=== PATIENT | male | born 1970 | race American Indian/Alaskan Native ===

== ENCOUNTER 2023-04-30 17:10 | Emergency (ER) | payer OTHER, SELFPAY ==
[2023-04-30 17:15] VITALS: BP 157/84; PULSE 92; RESP 18; TEMP 36.3; O2SAT 99; BMI 35.2
--- NOTE | 2023-04-30 19:06 | ED_ITS ---
HPI - General Adult General Time Seen by Provider: 19:06 Date Seen: 04/30/23 Chief complaint: Extremity Pain/Injury, Upper Stated complaint: L shoulder and chest numbness, tingling Time Seen by Provider: 04/30/23 19:06 Source: patient and RN notes reviewed Mode of arrival: ambulatory Limitations: no limitations History of Present Illness HPI narrative: Patient is a 53-year-old male coming in with about 4 months history of numbness tingling that goes from his 3rd and 4th fingers in will feel it up into his left anterior chest wall. He calls it a numb pain. When asked views having pain he said there was no pain but then later he did state it was a numb pain that will range from about 2-4. If he attempts to raise his left arm over his head it will completely fall asleep. He is notably sitting with his right arm over his head and preferentially puts it there. He denies any trauma at the onset of this. His left arm will be more numb and tingly when he wakes up. His 2nd finger on the left hand has lost all sensitivity after an accident. Again there is no trauma. He is worried about heart disease as it is strong in his family. He states he is on lisinopril to control his blood pressure, tries to have a physical every year. He admits he had a lipid panel as well as a cardiac stress test per report last urine is physical. We did review that for months of constant symptoms would not be a heart attack. His symptoms tonight are from something different but we did discuss that does not rule out the possibility of underlying heart disease for him, he needs to continue to be monitored to his primary care provider I would highly recommend ongoing efforts for healthy lifestyle. He is not a smoker. Denies neck pain. Related Data Allergies Allergy/AdvReac Type Severity Reaction Status Date / Time No Known Drug Allergies Allergy Verified 04/30/23 17:18 Review of Systems Status of ROS: Reports: 6 or more systems reviewed and unremarkable except as noted in History and below Exam Const: Vital Signs, click to edit/add: Vital Signs - 24 hr 04/30/23 17:15 Temperature 97.3 F L Pulse Rate [Right Pulse Oximeter] 92 Respiratory Rate 18 Blood Pressure [Ri ght Upper Arm] 157/84 H Pulse Oximetry 99 Oxygen Delivery Me thod Room Air 53-year-old male is alert interactive no apparent distress. Pupils equal round, sclera clear, face atraumatic, normal speech. Neck is supple, no cervical adenopathy no thyromegaly masses or nodules. Lungs are clear with good air entry, CV regular rate and rhythm no murmur. No palpable chest wall mass, does feel some left lateral anterior chest wall different sensation but again no mass. He has normal sensation throughout his fingers of the left hand minus his right index as this 1 has no sensation. Cap refill is normal. He has negative Tinel's and Phalen's at the wrist positive Tinel's at his left elbow. Strength and sensation is normal and symmetrical. Do note that he has vitiligo with loss of pigmentation at the tips of his fingers. Documenting provider has reviewed patient's vital signs: yes Course Course Hospital Course: Reviewed with patient that this is presenting like a peripheral neuropathy which is isolated in his left arm. He has no symptoms elsewhere. He has a positive Tinel's at the left elbow making ulnar neuropathy a possibility. Like carpal tunnel, can have retrograde symptoms with other neuropathies as well. He needs outpatient follow-up with his primary care provider, referral to have an EMG of this arm to help better delineate the peripheral neuropathy. Laboratory evalua tion can be considered in can be reviewed with his primary care provider. As we discussed before, his current symptoms are not indicative of acute coronary syndrome but he does have risk factors and needs ongoing monitoring for that. Highly encourage him on lifestyle that is heart healthy. No further labs need to be done tonight as this is a peripheral neuropathy and is not clinically emergent at this time. Vital Signs Vital signs: Initial Vital Signs Temperature 97.3 F L 04/30/23 17:15 Temperature Source Temporal Artery Scan 04/30/23 17:15 Pulse Rate 92 04/30/23 17:15 Pulse Rhythm Regular 04/30/23 17:15 Pulse Strength 3+ Normal 04/30/23 17:15 Respiratory Rate 18 04/30/23 17:15 Blood Pressure 157/84 H 04/30/23 17:15 Blood Pressure Mean 108 H 04/30/23 17:15 Blood Pressure Position Sitting 04/30/23 17:15 Pulse Oximetry 99 04/30/23 17:15 Oxygen Delivery Method Room Air 04/30/23 17:15 Vital Signs Temperature 97.3 F L 04/30/23 17:15 Pulse Rate 92 04/30/23 17:15 Respiratory Rate 18 04/30/23 17:15 Blood Pressure 157/84 H 04/30/23 17:15 Pulse Oximetry 99 04/30/23 17:15 Oxygen Delivery Method Room Air 04/30/23 17:15 Temperature 97.3 F L 04/30/23 17:15 Pulse Rate 92 04/30/23 17:15 Respiratory Rate 18 04/30/23 17:15 Blood Pressure 157/84 H 04/30/23 17:15 Pulse Oximetry 99 04/30/23 17:15 Oxygen Delivery Method Room Air 04/30/23 17:15 Medical Decision Making ECG Data Attestation: I personally reviewed and interpreted this ECG as follows: (Sinus rhythm, 100 beats per minute, no acute ischemia noted.) Prior ECG tracings: not available for review Critical Care Time Critical Care Time Critical Care Time: No Discharge Plan Discharge Clinical Impression: Numbness and tingling in left arm Patient Disposition: Home, Self-Care Condition: Stable Instructions: Paresthesia (ED) Additional Instructions: Need to schedule follow-up with your primary care provider as soon as you are able to. Recommend having an EMG ordered to further delineate the numbness and tingling in this left arm. It is possible that this could be an ulnar neuropathy. Continue to work with your primary care provider for risk factor reduction for cardiac disease given your reported family history. Heart healthy lifestyle includes low-fat low-sodium diet, exercise and maintaining healthy weight. Talk to her primary care provider about this further. Continue to have your blood pressure and your cholesterol monitored. Activity Level: Activity as Tolerated Follow Up/Referrals: Provider,Not a Local [Primary Care Provider] - Stand Alone Forms: [employer] Info Instructions
== END 2023-04-30 19:47 | disposition home or self-care (01) ==
LOC: ED 19:43
PROVIDERS: Emergency Provider Family Medicine; PCP Physician Assistant
DX: R20.0 Anesthesia of skin (principal)
CPT/HCPCS: 99283

== ENCOUNTER 2024-06-16 15:52 | Emergency (ER) | payer OTHER, SELFPAY ==
[2024-06-16 15:55] VITALS: BP 165/97; PULSE 109; RESP 18; TEMP 36.9; O2SAT 94; BMI 36.3
--- NOTE | 2024-06-16 16:35 | ED_ITS ---
HPI - General Adult General Chief complaint: Neuro Symptoms/Altered Deficit Stated complaint: left side facial drooping/numbness Time Seen by Provider: 06/16/24 15:59 Source: patient Mode of arrival: ambulatory Limitations: no limitations History of Present Illness HPI narrative: 54-year-old male presenting today with left-sided facial weakness that started approximately 24 hours ago. Patient states that he got a funny sensation yesterday with some tingling on the left side of the face and has slowly progressed to drooping of the left face today. He states that he also felt that his tongue was a bit numb by the end of yesterday and that he was having a difficult time tasting things, but he feels like those symptoms have resolved. He denies any diplopia or blurry vision. He denies any ringing in his ears or ear pain. He denies headache, confusion, fogginess. He denies any changes in his speech. He denies any deficits of the extremities. He denies changes in the way he walks or difficulty walking. Patient denies fevers or chills. He denies a stiff neck. Denies difficulty speaking, breathing or swallowing. Past medical history is significant for bilateral knee arthritis, hypertension. Patient takes lisinopril hydrochlorothiazide. He has had a scope of the right knee and sinus surgery, both years ago and no recent surgeries. He receives steroid injections of the left knee periodically. He denies any tobacco use. His family history significant for coronary artery disease, no history of tumors, cancers or strokes. Related Data Home Medications ?Medication ?Instructions ?Recorded ?Confirmed lisinopril 10 1 tab PO DAILY 06/16/24 06/16/24 mg-hydrochlorothiazide 12.5 mg tablet Previous Rx's ?Medication ?Instructions ?Recorded prednisone 20 mg tablet 60 mg (3 x 20 mg) PO DAILY 7 days 06/16/24 #21 tabs valacyclovir 1 gram tablet 1,000 mg PO TID 7 days #21 tabs 06/16/24 Allergies Allergy/AdvReac Type Severity Reaction Status Date / Time No Known Drug Allergies Allergy Verified 04/30/23 17:18 Review of Systems Status of ROS: Reports: 10 or more systems reviewed and unremarkable except as noted in History and below PFSH PFS Social History Smoking Status: Never smoker How often do you have a drink containing alcohol: monthly or less How often do you have six or more drinks on one occasion: Never AUDIT-C Alcohol total score: 1 Non-prescribed substance use: denies use Exam Narrative: Exam Narrative: Well-nourished well-developed patient in no acute distress. Alert and oriented. Answers questions appropriately. Mood and affect are appropriate. Thoughts are goal oriented and rational. No tangential or magical thinking noted. Patient speaks in full sentences without needing to catch his breath. HEENT: Normocephalic atraumatic. Pupils are equally round reactive to light. Extraocular muscles are intact. Conjunctivae are moist without any icterus noted, left conjunctiva is injected. Moist mucous membranes. Posterior pharynx is normal. Neck is soft without any lymphadenopathy or thyromegaly. No masses are appreciated. TMs are clear bilaterally. Ear canals are without vesicles or other abnormalities. Patient has a left-sided facial droop which includes the left eyebrow, eyelid, loss of the nasolabial fold, in the mouth. Patient is able to close the left eye when prompted, however, when he blinks the left eye does not fully close. Patient has no tenderness to palpation at the TMJ, no tenderness with opening and closing the jaw. He has no tenderness over the temporal or parietal region of the scalp. There is no parotid tenderness or swelling. No masses are appreciated along the face or jaw. Patient has no tenderness at the neck. He has no tenderness with full range of motion of the neck. Cardiovascular: Heart is regular rate and rhythm S1 and S2 are present without any murmurs. Lungs: Clear to auscultation bilaterally no wheezes rhonchi or rales are appreciated. Extremities: Bilateral lower extremities are without edema. Skin: Well perfused without any obvious rashes. Strength is 5/5 of the upper and lower extremities. Reflexes are 2+ and symmetric at the knees. Romberg sign is negative. Cranial nerves 3-12 are normal. [id number] is normal. [id number] is normal. There is no nystagmus either horizontally or vertically. Gait is normal. 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 There is no evidence of stroke given that his facial weakness does not spare the eye or forehead. I do not see any evidence of Tali Haq syndrome, Layne pineda. There is no evidence of a tumor at this time. Therefore, we did go ahead and do a blood draw for Lyme disease. Patient will be treated with both prednisone 60 mg daily for 7 days and valacyclovir 1000 mg p.o. t.i.d. for 7 days as he does appear to have between a grade 4 and 5 House Brackmann classification. Vital Signs Vital signs: Initial Vital Signs Temperature 98.5 F 06/16/24 15:55 Temperature Source Temporal Artery Scan 06/16/24 15:55 Pulse Rate 109 H 06/16/24 15:55 Respiratory Rate 18 06/16/24 15:55 Blood Pressure 165/97 H 06/16/24 15:55 Blood Pressure Mean 119 H 06/16/24 15:55 Blood Pressure Position Sitting 06/16/24 15:55 Pulse Oximetry 94 06/16/24 15:55 Oxygen Delivery Method Room Air 06/16/24 15:55 Vital Signs Temperature 98.5 F 06/16/24 15:55 Pulse Rate 109 H 06/16/24 15:55 Respiratory Rate 18 06/16/24 15:55 Blood Pressure 165/97 H 06/16/24 15:55 Pulse Oximetry 94 06/16/24 15:55 Oxygen Delivery Method Room Air 06/16/24 15:55 Temperature 98.5 F 06/16/24 15:55 Pulse Rate 109 H 06/16/24 15:55 Respiratory Rate 18 06/16/24 15:55 Blood Pressure 165/97 H 06/16/24 15:55 Pulse Oximetry 94 06/16/24 15:55 Oxygen Delivery Method Room Air 06/16/24 15:55 Medical Decision Making MDM Narrative Medical decision making narrative: 54-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 Treatment plan per above. Follow-up with primary care in 1-2 weeks. We also discussed eye protection. Discharge Plan Discharge Clinical Impression: Wagner's palsy Patient Disposition: Home, Self-Care Condition: Stable Additional Instructions: Take all steroid as prescribed. Can start in the morning. Take all anti viral as prescribed. Can start in the morning. You should make sure to practice meticulous eye care to prevent eye injury. This includes using artificial tears 4 times daily and up to every hour as needed. These are available [id number]. If you are out doing activities that would cause anything to come towards your eye, goggles or glasses should be worn to physically protect the eye firm external trauma. If during the day, the eye still feels dry or irritated you can always tape the eye shut just like you would for sleep. During sleep, a gel formulation of artificial tears should be applied to the eye, and in addition, the eye should be carefully taped shut using a medical grade, water proof transparent tape. This can be purchased [id number]. Follow-up with your primary care provider in approximately 1 week. Prescriptions: New prednisone 20 mg tablet 60 mg PO DAILY 7 Days Qty: 21 0RF valacyclovir 1 gram tablet 1,000 mg PO TID 7 Days Qty: 21 0RF No Action lisinopril-hydrochlorothiazide 10-12.5 mg tablet 1 tab PO DAILY Follow Up/Referrals: Abebe Patrick PA-C [Primary Care Provider] - Stand Alone Forms: [employer] Info Instructions
[2024-06-16 16:42] VITALS: PULSE 93; O2SAT 97
--- OUTSIDE RECORDS SUMMARY | 2024-06-16 16:45 | XMS_ITS ---
Author Organization [facility] Address [address] [place] [address] Care Team Providers Care Gemologist Name Role Phone Unavailable Unavailable Unavailable Surgery Details Not on file Complications Check Surgery Details section. Procedure Estimated Blood Loss Check Surgery Details section. Procedure Findings Check Surgery Details section. Procedure Specimens Taken Check Surgery Details section.
--- OUTSIDE RECORDS SUMMARY | 2024-06-16 16:45 | XMS_ITS | Encounter Summary ---
Author Organization [facility] Address [address] [place] [address] Care Team Providers Care Banquet Line Cook Name Role Phone Jennifermelanie Abebe Natacha Aldrich Primary Care Provider Encounter Details Date Type Department Care Team (Late st Contact Info) Description 05/05/2016 Historical Ophthalmology [facility] Shukri Jewell Jr., M.D. 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 - 05/05/2016 9:03 AM CDT Eye General CHIEF COMPLAINT Complete Exam HISTORY OF PRESENT ILLNESS Decreased near [place] Headaches alomost daily, [facility] part of head Needs new glasses as his are scratched ROS good general health - heart and lungs WNL IMPRESSION / REPORT / PLAN #1 Presbyopia Change #2 Mild Hyperopia No sig change Try new glasses, if Headaches persist, speak with PCP RTO 1 year DIAGNOSIS #1 Presbyopia #2 Mild Hyperopia CDM Reports - EYEGEN Id: [id number] Status: Fnl documented in this encounter Plan of Treatment Not on file documented as of this encounter Visit Diagnoses Not on filedocumented in this encounter Additional Health Concerns Assessment Noted Time PHQ-9 Depression Total Score: 5 10/12/19 16 4:32 PM SEQUINS SLINGER documented as of this encounter Care Teams Banquet Line Cook Relationship Specialty Start Date End Date Abebe Patrick P.A.-C. [address] [facility] [place] [id number] PCP - General Family Medicine 12/25/23 documented as of this encounter
--- OUTSIDE RECORDS SUMMARY | 2024-06-16 16:45 | XMS_ITS | Referral Summary ---
Author Organization [facility] Address [address] [place] [id number] Care Team Providers Care Pe Teacher Name Role Phone Abebe Patrick P.A.-C. Primary Care Provider Source Comments Patient records contain information from all sites at [facility]. For routine questions regarding patient records, call [phone] during business hours, M-F 8:00 AM - 5:00 PM Central Time. Record requests for emergency care only can be directed to [phone] at any time.[facility] Encounters Date Type Department Care Team Description 04/18/2024 9:30 AM CDT Office Visit Department of Family Medicine, [facility], in [address] [address] Abebe Patrick P.A.-C. Pain Knee Left (Primary Dx) 04/18/2024 Nurse Triage Department of Family Medicine, [facility], in [address] [address] Wendy Marie R.N. Knee Pain from Last 3 Months Allergies No known active allergies Medications multivitamin capsule Take 1 capsule by mouth daily. Active ibuprofen (ADVIL,MOTRIN) 200 mg capsule Take 600 mg by mouth daily. Active lisinopril-hydr oCHLOROthiazide (PRINZIDE,ZESTO RETIC) 10-12.5 mg per tablet Take 1 tablet by mouth daily. 90 tablet 3 01/08/2024 5 Active Active Problems Problem Noted Date Diagnosed Date Hyperlipidemia 04/08/2022 Hypertension Essential Primary 02/19/2021 Resolved Problems Problem Noted Date Diagnosed Date Resolved Date Morbid Severe Obesity Due To Excess Calories 04/08/2022 Immunizations Name Administration Dates Next Due HepA Adult 02/08/2004,08/09/2003 HepB, Unspecified 02/07/2004,08/09/2003,04/05/20 03 IPV 04/23/1986 Influenza, Injectable, Quadrivalent 06/05,07/09/2015,07/10/2014,2012 Influenza, Seasonal, Injectable 05/27/2016,07/06,07/07/2010 Influenza, Unspecified 01/08/2024(Deferr ed: Patient decision),06/01/2016,07/05/2011, 003 MCV4 (Menactra)(Discontinued) 12/03/2003 RZV (SHINGRIX) 06/12/2023,04/08/2022 Rubella 04/23/1986 SARS-COV-2 (COVID-19) - MODERNA(Discontinued) 04/08/2022 SARS-COV-2 (COVID-19) - PFIZ ER (Discontinued)(12 years or older) 01/08/2024(Deferred: Other - Waiting on new vaccine.) Smallpox 04/23/1986 Td (Adult), adsorbed 05/09/2003,02/10/1996 Tdap 05/23/2014 typhoid vaccine, parenteral (discontinued) 02/08/2004 Social History Tobacco Use Types Packs/Day Years Used Date Smoking Tobacco: Never Smokeless Tobacco: Never Tobacco Cessation:Counseling Given: Not Answered Alcohol Use Standard Drinks/Week Comments Yes 6 (1 standard drink = 0.6 oz pur e alcohol) [facility] Utilities Answer Date Recorded In the past 12 months has e [employer], gas, oil, or water [employer] threatened to shut off services in your home? Patient declined 01/08/2024 Humiliation, Afraid, Rape, and Kick questionnair e Answer Date Recorded Within the last year, have y ou been afraid of your partner or ex-partner? No 04/08/2022 Within the last year, have y ou been humiliated or emotionally abused in other ways by your partner or ex-partner? No Within the last year, have y ou been kicked, hit, slapped, or otherwise physically hurt by your partner or ex-partner? No 04/08/2022 Within the last year, have y ou been raped or forced to have any kind of sexual activity by your partner or ex-partner? No 04/08/2022 Social Connection and Isolation Panel [NHANES] A nswer Date Recorded In a typical week, how many times do you talk on the phone with family, friends, or neighbors? Three times a week 04/08/2022 How often do you get togethe r with friends or relatives? Three times a week 04/08/2022 How often do you attend chur ch or pentecostal services? Never 04/08/2022 Do you belong to any clubs o r organizations such as orthodox groups, unions, fraternal or athletic groups, or school groups? No 04/08/2022 How often do you attend meet ings of the clubs or organizations you belong to? Never 04/08/2022 Are you , , di vorced, , never , or living with a partner? 04/08/2022 AUDIT-C Answer Date Recorded Q1: How often do you have a drink containing alc ohol? 2-4 times a month 04/08/2022 Q2: How many drinks containi ng alcohol do you have on a typical day when you are drinking? 1 or 2 04/08/2022 Q3: How often do you have si x or more drinks on one occasion? Less than monthly 04/08/2022 Overall Financial Resource Strain (CARDIA) Answe r Date Recorded How hard is it for you to pa y for the very basics like food, housing, medical care, and heating? Not very hard 04/08/2022 PHQ-2 Answer Date Recorded PHQ-2 Score 0 01/08/2024 [facility] [place] [facility] [place] of Occupat ional Health - Occupational Stress Questionnaire Answer Date Recorded Do you feel stress - tense, restless, nervous, or anxious, or unable to sleep at night because your mind is troubled all the time - these days? To some extent 04/08/2022 Exercise Vital Sign Answer Date Recorde d On average, how many days pe r week do you engage in moderate to strenuous exercise (like a brisk walk)? 6 days 01/08/2024 On average, how many minutes do you engage in exercise at this level? 130 min 01/08/2024 Hunger Vital Sign Answer Date Recorded Within the past 12 months, y ou worried that your food would run out before you got the money to buy more. Patient declined Within the past 12 months, t he food you bought just didn't last and you didn't have money to get more. Patient declined 02/2024 PRAPARE - Transportation Answer Date Re corded In the past 12 months, has l ack of transportation kept you from medical appointments or from getting medications? No 02/2024 In the past 12 months, has l ack of transportation kept you from meetings, work, or from getting things needed for daily living? No 01/08/2024 Nutrition Answer Date Recorded On average, how many serving s of fruits and vegetables do you eat per day (serving size is equal to 1 cup or approximately the size of a tennis ball)? 5 or more 01/08/2024 Dental Answer Date Recorded Dental: Regular Dentist Yes 01/08/20 Employment Answer Date Recorded Employment status Employed and actively working without restrictions 01/08/2024 Housing Stability Answer Date Recorded What is your living situation today? I have a [facility] place to live 01/08/2024 Education Answer Date Recorded What is the highest level of school you have completed or the highest degree you have received? 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 Gender Identity Male 01/08/2024 8:02 AM CDT Sexual Orientation Straight 01/08/2024 8: 02 AM CDT Last Filed Vital Signs Vital Sign Reading Time Taken Comments Blood Pressure 110/78 04/18/2024 9:20 AM CDT Pulse 87 04/18/2024 9:20 AM CDT Temperature 35.8 ??C (96.4 ??F) 04/18/2024 9:20 AM CD T Respiratory Rate 20 04/18/2024 9:20 AM CDT Oxygen Saturation 96% 06/12/2023 2:39 PM CDT Inhaled Oxygen Concentration - - Weight 107 kg (236 lb 8.9 oz) 04/18/2024 9:20 AM CDT Height 168.8 cm (5' 6.46) 04/18/2024 9:20 AM CD T Body Mass Index 37.66 04/18/2024 9:20 AM CDT Plan of Treatment Not on file Procedures Procedure Name Priority Date/Time Associated Diagnosis Comments [place] ARTHCS ASP/INJ MJR JT WO US Routine 04/18/2024 9:30 AM CDT Pain Knee Left HEMOGLOBIN A1C, B Routine 01/08/2024 9:0 8 AM CDT Screening Examination Diabetes Mellitus LIPID PANEL, S Routine 01/08/2024 9:08 AM CDT Hypertension Essential Primary Hyperlipidemia Screening Examination Prostate Cancer COMPREHENSIVE METABOLIC PANEL, S/P Routine 01/08/2024 9:08 AM CDT Hypertension Essential Primary Hyperlipidemia Screening Examination Prostate Cancer from Last 3 Months or Most Recently Relevant to Health Maintenance Results * [place] ARTHCS ASP/INJ MJR JT WO US (04/18/2024 9:30 AM CDT) Narrative [facility]ODAL - 04/18/2024 9:30 AM CDT Abebe Patrick P.A.-C. ? 04/18/2024 ??1:24 PM Knee site- L knee joint : injection only Performed by: Abebe Patrick P.A.-C. Authorized by: Abebe Patrick P.A.-C. ?? PROCEDURE DETAILS Procedure Location knee Knee site: L knee joint Patient position: supine Procedural approach: superolat Procedure performed: injection only Needle gauge: 22 G, length: 1 1/2 in Procedural Medication The following medications were administered at the target site(s) Local anesthetic: 4 mL lidocaine 10 mg/mL (1 %) Corticosteroid: 40 mg triamcinolone acetonide 40 mg/mL CONSENT Consent obtained: verbal Consent given by: patient The benefits, risks and alternatives to the procedure and the potential need for sedation or anesthesia as well as the names, roles, and responsibilities of healthcare team members performing significant interventional tasks were discussed with the patient and/or decision maker. UNIVERSAL [employer]OTOCOL All relevant documentation and testing were reviewed and available. All required blood products, implants, devices and or special equipment were made available as applicable. Pre-procedure verification was conducted and the correct site was marked if required. A fire risk and smoke assessment were done as applicable. The procedural time-out to verify correct patient, correct side/site, and procedure was conducted prior to performing the procedure and confirmed in a procedural pause. PRE-PROCEDURE DETAILS Procedure purpose: therapeutic Appropriate hand hygiene, gown, cap, mask, protective eyewear, sterile gloves, skin preparation, sterile drape, and strict aseptic technique were utilized as applicable for the procedure. Site preparation: alcohol and povidone-iodine POST-PROCEDURE DETAILS Procedure completed successfully: yes Complications: no apparent complications ?? us Abebe Patrick P.A.-C. PROCEDURE/MINOR SURGIC AL ORDERABLES Final Result [facility]AL NA * (ABNORMAL) Lipid Panel (01/08/2024 9:08 AM CDT) Triglycerides 163(H) mg/dL 01/08/2024 1:54 PM CDT [facility] Comment: ----REFERENCE VALUE---- Normal: <150 mg/dL Borderline High: 150-199 mg/dL High: 200-499 mg/dL Very High: > or =500 mg/dL Cholesterol, Total 187 mg/dL 2023 1:54 PM CDT [facility] Comment: ----REFERENCE VALUE---- Desirable: < 200 mg/dL Borderline High: 200 - 239 mg/dL High: > or = 240 mg/dL Cholesterol, LDL, Calculated 115 mg/dL 01/08/2024 1:54 PM CDT [facility] Comment: ----REFERENCE VALUE---- Desirable: <100 mg/dL Above Desirable: 100-129 mg/dL Borderline High: 130-159 mg/dL High: 160-189 mg/dL Very High: >=190 mg/dL ----ADDITIONAL INFORMATION---- LDL cholesterol calculated using the Adame/NIH equation. Cholesterol, HDL 43 >=40 mg/dL 01/08/20 1:54 PM CDT [facility] Cholesterol, Non-HDL, Calculated 144 mg/dL 01/08/2024 1:54 PM CDT [facility] Comment: ----REFERENCE VALUE---- Desirable: <130 mg/dL Above Desirable: 130-159 mg/dL Borderline High: 160-189 mg/dL High: 190-219 mg/dL Very High: > or =220 mg/dL Fasting (8 HR or more) yes 01/08/2024 1:19 PM CDT [facility] Blood (Blood, Venous) 01/08/2024 9:08 AM CDT 01/08/2024 1:19 PM CDT Abebe CordobaA.-C. LAB BLOOD ADD-ON Final Result Performing Organization Address [facility] Co de Phone Number [facility] [address] [place] [address], [facility] [place] [address] [place] [id number] * (ABNORMAL) Hemoglobin A1c (01/08/2024 9:08 AM CDT) Hemoglobin A1c, B 6.0(H) 4.2 - 5.6 % 01/08/2024 1:47 PM CDT [facility] Comment: Hemoglobin A1c values of 5.7-6.4 percent indicate an increased risk for developing diabetes mellitus. In diabetic patients, HbA1c goals should be discussed with healthcare provider. Blood (Blood, Venous) 01/08/2024 9:08 AM CDT 01/08/2024 1:21 PM CDT Abebe CordobaA.-C. LAB BLOOD ADD-ON Final Result Performing Organization Address City/[facility]/ZIP Co de Phone Number [facility] [address] [place] [address], [facility] [address] [place] [phone] * (ABNORMAL) Comprehensive Metabolic Panel (01/08/2024 9:08 AM CDT) Potassium, P 5.4(H) 3.6 - 5.2 mmol/L 01/08/2024 1:54 PM CDT [facility] Sodium, P 141 135 - 145 mmol/L 01/08/2024 1:54 PM CDT [facility] Chloride, P 104 98 - 107 mmol/L 01/08/2024 1:54 PM CDT [facility] Bicarbonate, P 28 22 - 29 mmol/L 01/08/2024 1:54 PM CDT [facility] Anion Gap, P 9 7 - 15 01/08/2024 1:54 PM CDT [facility] BUN (Blood Urea Nitrogen), P 15 8 - 24 mg/dL 01/08/2024 1:54 PM CDT [facility] Creatinine 0.77 0.74 - 1.35 mg/dL 01/08/2024 1:54 PM CDT [facility] Estimated GFR (eGFR) >90 >=60 mL/min/BS A 01/08/2024 1:54 PM CDT [facility] Comment: Estimated GFR calculated using the 2020 CKD_EPI creatinine equation. Calcium, Total, P 9.5 8.6 - 10.0 mg/dL 01/08/2024 1:54 PM CDT [facility] Glucose, P 112 70 - 140 mg/dL 01/08/2024 1:54 PM CDT [facility] Protein, Total, P 7.8 6.3 - 7.9 g/dL 01/08/2024 1:54 PM CDT [facility] Albumin, P 4.4 3.5 - 5.0 g/dL 01/08/2024 1:54 PM CDT [facility] Aspartate Aminotransferase (AST), P 22 8 - 48 U/L 01/08/2024 1:54 PM CDT [facility] Alkaline Phosphatase, P 137(H) 40 - 129 U/L 01/08/2024 1:54 PM CDT [facility] Alanine Aminotransferase (ALT), P 22 7 - 55 U/L 01/08/2024 1:54 PM CDT [facility] Bilirubin, Total, P 0.3 0.0 - 1.2 mg/dL 01/08/2024 1:54 PM CDT [facility] Blood (Blood, Venous) 01/08/2024 9:08 AM CDT 01/08/2024 1:19 PM CDT us Abebe Patrick P.A.-C. LAB BLOOD ADD-ON Final Result [facility] [address] [place] [address], [place] [facility] [place] [address] [place] [address] from Last 3 Months or Most Recently Relevant to Health Maintenance Insurance [employer] Care Teams Pe Teacher Relationship Specialty Start Date End Date Abebe Patrick P.A.-C. [address] [place] [phone] PCP - General Family Medicine 12/25/23
--- OUTSIDE RECORDS SUMMARY | 2024-06-16 16:45 | XMS_ITS | Encounter Summary ---
Author Organization [facility] Address [address] [place] [address] Care Team Providers Care Concrete Boom Operator Name Role Phone Abebe Patrick P.A.-C. Primary Care Provider Reason for Referral * Outpatient (Routine) - Authorized Specialty Diagnoses / Procedures Referred By Florentino t Referred To Contact Diagnoses Pain Knee Left Procedures Large Joint Injection: L knee joint Abebe Patrick P.A.-Star [address] [place] [address] Phone: tel: fax: [facility] Region Referral ID Status Reason Start Date Expiration Date V isits Requested Visits Authorized [id number] Authorized 04/18/2024 04/18/2025 1 1 Reason for Visit * Reason Comments Pain In Limb Knee pain left knee ongoing, would like cortisone shot Encounter Details Date Type Department Care Team (Late st Contact Info) Description 04/18/2024 9:30 AM CDT Office Visit Department of Family Medicine, [facility], in [place], [place] [address] [place] [address] Abebe Patrick P.A.-CShemar [address] [place] [address] Pain Knee Left (Primary Dx) Social History Tobacco Use Types Packs/Day Years Used Date Smoking Tobacco: Never Smokeless Tobacco: Never Tobacco Cessation:Counseling Given: Not Answered Alcohol Use Standard Drinks/Week Comments Yes 6 (1 standard drink = 0.6 oz pur e alcohol) [facility] Utilities Answer Date Recorded In the past 12 months has e electric, gas, oil, or water company threatened to shut off services in your [...] often do you attend chur ch or muslim services? Never 04/08/2022 Do you belong to any clubs o r organizations such as hinduism groups, unions, fraternal or athletic groups, or [...] Answer Date Recorded PHQ-2 Score 0 01/08/2024 [facility] [place] of Occupat ional Health - Occupational Stress [...] your living situation today? I have a [facility] place to live 01/08/2024 Education Answer Date Recorded What is the highest level of school you have completed or the highest degree you have received? 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 Gender Identity Male 01/08/2024 8:02 AM CDT Sexual Orientation Straight 01/08/2024 8: 02 AM CDT documented as of this encounter Last Filed Vital Signs Vital Sign Reading Time Taken Comments Blood Pressure 110/78 04/18/2024 9:20 AM CDT Pulse 87 04/18/2024 9:20 AM CDT Temperature 35.8 ??C (96.4 ??F) 04/18/2024 9:20 AM CD T Respiratory Rate 20 04/18/2024 9:20 AM CDT Oxygen Saturation - - Inhaled Oxygen Concentration - - Weight 107 kg (236 lb 8.9 oz) 04/18/2024 9:20 AM CDT Height 168.8 cm (5' 6.46) 04/18/2024 9:20 AM CD T Body Mass Index 37.66 04/18/2024 9:20 AM CDT documented in this encounter Progress Notes * Abebe Patrick P.A.-C. - 04/18/2024 9:30 AM CDTAssociated Order(s): Large Joint Injection: L knee joint Post-Procedure Diagnose(s): Pain Knee Left SUBJECTIVE CHIEF COMPLAINT / REASON FOR VISIT Ez Guillory is a 54 y.o. male who presents for evaluation of Pain In Limb (Knee pain left kneeongoing, would like cortisone shot). HISTORY OF PRESENT ILLNESS Ez presents today with complaints of left knee pain. This has bothered him chronically. He is wondering about different treatment options for this. He has a history of chronic knee pain but says the left when it has been bothering him more OBJECTIVE Vitals: 04/18/24 0920 BP: 110/78 BP Location: Right arm Patient Position: Sitting Cuff Size: Large Pulse: 87 Resp: 20 Temp: (!) 35.8 ??C TempSrc: Temporal Weight: 107 kg Height: 168.8 cm Body mass index is 37.66 kg/m??. PHYSICAL EXAMINATION In general he appears in no acute distress Knees: He has significant calluses of both of his knees he does much of his work on his knees on a regular basis. There is no significant erythema or swelling noted ASSESSMENT / PLAN #1 Pain Knee Left We discussed different treatment options for his left knee pain. I think an injection would be a reasonable option. I discussed the risks and benefits of this and he would like to proceed. Please seeseparate procedure note Knee site- L knee joint : injection only Performed by: Abebe Patrick P.A.-C. Authorized by: Abebe Patrick P.A.-C. PROCEDURE DETAILS Procedure Location knee Knee site: [...] completed successfully: yes Complications: no apparent complications Abebe Patrick P.A.-C. documented in this encounter Plan of Treatment Not on file documented as of this encounter Procedures Procedure Name Priority Date/Time Associated Diagnosis Comments [place] ARTHCS ASP/INJ MJR JT WO US Routine 04/18/2024 9:30 AM CDT Pain Knee Left documented in this encounter Results * [place] ARTHCS ASP/INJ MJR JT WO US (04/18/2024 [...] successfully: yes Complications: no apparent complications ?? Abebe Patrick P.A.-C. PROCEDURE/MINOR SURGIC AL ORDERABLES Final Result [facility] NA documented in this encounter Visit Diagnoses Diagnosis Pain Knee Left- Primary documented in this encounter Administered Medications Inactive Administered Medications - up to 3 most recent administrations Medication Order MAR Action Action Date Dose Rate Site lidocaine 10 mg/mL (1 %) injection 4 mL (Xylocaine) 4 mL, injection, One-Time Injection, Starting on Jeanne 04/18/24 at 0930, For 1 doseIndications:Pain Knee Left Given 04/18/2024 9:30 AM CDT 4 mL triamcinolone acetonide injection 40 mg (Kenalog-40) 40 mg, intra-articular, One-Time Injection, Starting on Jeanne 04/18/24 at 0930, For 1 doseIndications:Pain Knee Left Given 04/18/2024 9:30 AM CDT 40 mg documented in this encounter Additional Health Concerns Assessment Noted Time PHQ-9 Depression Total Score: 5 10/12/19 16 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 [address] [place] [address] PCP - General Family Medicine 12/25/23 documented as of this encounter
--- OUTSIDE RECORDS SUMMARY | 2024-06-16 16:45 | XMS_ITS | Clinical Summary ---
Author Organization [facility] Address [address] [place] [id number] Care Team Providers Care Legal Services Manager Name Role Phone Abebe Patrick P.A.-C. Primary Care Provider Source Comments Patient records contain information from all sites at [facility]. For routine questions regarding patient records, call [phone] during business hours, M-F 8:00 AM - 5:00 PM Central Time. Record requests for emergency care only can be directed to [phone] at any time.[facility] Allergies No known active allergies Medications multivitamin [...] Morbid Severe Obesity Due To Excess Calories 1 04/08/2022 Encounters Date Type Department Care Team Description 04/18/2024 9:30 AM CDT Office Visit Department of Family Medicine, [facility], [address] [phone] Abebe Patrick P.AShemar-Star Pain Knee Left (Primary Dx) 04/18/2024 Nurse Triage Department of Family Medicine, [facility], [address] [phone] Wendy Marie R.N. Knee Pain from Last 3 Months Immunizations Name Administration Dates Next Due HepA [...] Tdap 05/23/2014 typhoid vaccine, parenteral (discontinued) 02/08/2004 Family History Medical History Relation Name Comments Coronary artery disease Father kirill pandya Coronary artery disease Sister Relation Name Status Comments Father kirill pandya Sister Social History Tobacco Use Types Packs/Day Years Used Date Smoking Tobacco: Never Smokeless Tobacco: Never Tobacco Cessation:Counseling Given: Not Answered Alcohol Use Standard Drinks/Week Comments Yes 6 (1 standard drink = 0.6 oz pur e alcohol) [facility] Utilities Answer Date Recorded In the past 12 months has e [employer], gas, oil, or water [employer] threatened to shut off services in your [...] often do you attend chur ch or oriental orthodox services? Never 04/08/2022 Do you belong to any clubs o r organizations such as yazidi groups, unions, fraternal or athletic groups, or [...] Answer Date Recorded PHQ-2 Score 0 01/08/2024 [facility] of Occupat ional Health - Occupational Stress [...] your living situation today? I have a [facility] place to live 01/08/2024 Education Answer Date Recorded What is the highest level of school you have completed or the highest degree you have received? 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 Gender Identity Male 01/08/2024 8:02 AM CDT [...] 04/18/2024 9:20 AM CDT Plan of Treatment Health Maintenance Due Date Last Done Comments CT Colonography 1970 Cologuard 1970 FIT 1970 Hepatitis C Screening 1970 COVID-19 Vaccine ( season) 2024 04/08/2022, 01/07/2021, 12/10/2020 DTaP,Tdap,and Td Vaccines (2 - Td or Tdap) 05/23/2024 05/23/2014, 05/09/2003, 02/10/1996 Influenza Vaccine (#1) 2024 7, 06/01/2016, 05/27/2016, Additional history exists Creatinine Level (Kidney Function Test) 01/07/2025 01/08/2024, 05/24/2023, 04/07/2022, Additional history exists Lipid (Cholesterol) Screening 01/07/2025 01/08/2024, 05/24/2023, 04/07/2022, Additional history exists Potassium Level 01/07/2025 01/08/2024, 05/06, 04/08/2022, Additional history exists Sodium Level 01/07/2025 01/08/2024, 05/06, 04/07/2022, Additional history exists Visit: Chronic Disease, age 18+ 01/07/2025 01/08/2024 Office Visit for Blood Pressure Check / Re-check 04/18/2025 04/18/2024 Fasting Glucose for Diabetes Screening 01/07/2027 01/08/2024, 01/08/2024, 05/24/2023, Additional history exists Colonoscopy 06/29/2028 06/29/2023 Colorectal Cancer Screening 06/29/2028 Orthopoxvirus Vaccine Completed 04/23/1986 Hepatitis B Vaccines Completed 02/07/2004, 08/09/2003, 04/05/2003 Hepatitis A Vaccines Completed 02/08/2004, 08/09/20 03 Zoster Vaccines Completed 06/12/2023, 04/08/2022 Depression Screening (Annual PHQ-2) Completed 01/08/2024, 01/08/2024 Pneumococcal vaccine (0-64 years) Aged Out No longer eligible based on patient's age to complete this topic Procedures Procedure Name Priority Date/Time Associated Diagnosis Comments TN ARTHCS ASP/INJ MJR JT WO US Routine [...] Recently Relevant to Health Maintenance Results * TN ARTHCS ASP/INJ MJR JT WO US (04/18/2024 9:30 AM CDT) Narrative MMODAL - 04/18/2024 9:30 AM CDT Abebe Patrick P.A.-C. ? 04/18/2024 ??1:24 PM Knee site- L knee joint : injection only Performed by: Abebe Patrick P.ASalomón Authorized by: Abebe Patrick P.A.-C. ?? PROCEDURE [...] Adame/NIH equation. Cholesterol, HDL 43 >=40 mg/dL 05/06/20 24 1:54 PM CDT OWAT Cholesterol, Non-HDL, Calculated 144 mg/dL 01/08/2024 1:54 PM CDT OWAT Comment: ----REFERENCE VALUE---- Desirable: <130 mg/dL Above Desirable: 130-159 mg/dL Borderline High: 160-189 mg/dL High: 190-219 mg/dL Very High: > or =220 mg/dL Fasting (8 HR or more) yes 01/08/2024 1:19 PM CDT OWAT Blood (Blood, Venous) 01/08/2024 9:08 AM CDT 01/08/2024 1:19 PM CDT Abebe Patrick P.A.-C. LAB BLOOD ADD-ON Final Result Performing Organization Address [facility] [place]/[facility] Co de Phone Number [facility] [address] [address], [facility] OWAT [facility] [address] [place] [address] * (ABNORMAL) Hemoglobin A1c (01/08/2024 9:08 AM CDT) Hemoglobin A1c, B 6.0(H) 4.2 - 5.6 % 01/08/2024 1:47 PM CDT OWAT Comment: Hemoglobin A1c values of 5.7-6.4 percent indicate an increased risk for developing diabetes mellitus. In diabetic patients, HbA1c goals should be discussed with healthcare provider. Blood (Blood, Venous) 01/08/2024 9:08 AM CDT 01/08/2024 1:21 PM CDT us Abebe NicolasC. LAB BLOOD ADD-ON Final Result Performing Organization Address [facility]/ZIP Co de Phone Number [facility] [address] [place] [address], [facility] OWAT [facility] [address], [place] [address] * (ABNORMAL) Comprehensive Metabolic Panel (01/08/2024 9:08 [...] Patrick P.A.-C. LAB BLOOD ADD-ON Final Result [facility] [address] [place] [address], [place] OW[facility] [place] [address] [place] [address] from Last 3 Months or Most Recently Relevant to Health Maintenance Insurance [employer] Care Teams Legal Services Manager Relationship Specialty Start Date End Date Abebe Patrick P.A.-C. [address] [place] [phone] PCP - General Family Medicine 12/25/23
--- OUTSIDE RECORDS SUMMARY | 2024-06-16 16:45 | XMS_ITS | Clinical Summary ---
Author Organization [facility] [place], [place] [address] Care Team Providers Care Sheet Rock Installer Name Role Phone Abebe Patrick Primary Care Provider [phone] Allergies No known active allergies Medications Medication Sig Dispensed Refills Start Date End Date Status lisinopril-hydrochloro thiazide (10-12.5 mg) tablet (PRINZIDE; ZESTORETIC) Take 1 Tablet by mouth once daily. Active multivitamin capsule Take 1 Capsule by mouth once daily. Active Social History Tobacco Use Types Packs/Day Years Used Date Smoking Tobacco: Never Alcohol Use Standard Drinks/Week Comments Not Asked 0 (1 standard drink = 0.6 oz pur e alcohol) Sex and Gender Information Value Date Recorded Sex Assigned at Not on file Gender Identity Not on file Sexual Orientation Not on file Obstetrics History Last Filed Vital Signs Vital Sign Reading Time Taken Comments Blood Pressure 121/86 06/29/2023 11:15 AM CDT Pulse 68 06/29/2023 11:15 AM CDT Temperature 36.8 ??C (98.2 ??F) 06/29/2023 10:44 AM C DT Respiratory Rate 16 06/29/2023 11:15 AM CDT Oxygen Saturation 97% 06/29/2023 11:15 AM CDT Inhaled Oxygen Concentration - - Weight 108 kg (238 lb) 06/29/2023 9:31 AM CDT Height 165.1 cm (5' 5) 06/29/2023 9:31 AM CDT Body Mass Index 39.61 06/29/2023 9:31 AM CDT Plan of Treatment Health Maintenance Due Date Last Done Comments Tdap 01/10/1979 Depression screening for age 12+ 1980 HIV for age 15-65 01/10/1983 BMI (ht and wt on same day) for age 18+ 01/10/1986 Hepatitis C screening for ag e 18-79 01/10/1986 Tetanus booster 1988 Lipids for age 45-75 01/10/2013 Zoster (shingles) series for age 50+ (1 of 2) 01/10/2018 COVID-19 vaccine series (2023- season) 2024 04/08/2022, 01/07/2021, 12/10/2020 Influenza for age 50-64 05/05/2024 Colonoscopy through age 75 06/29/2033 06/29/2023 Pneumococcal series for age 6-64 Aged Out No longer eligible b ased on patient's age to complete this topic Procedures Procedure Name Priority Date/Time Associated Diagnosis Comments COLONOSCOPY 06/29/2023 10:04 AM CDT from Last 3 Months or Most Recently Relevant to Health Maintenance Results * COLONOSCOPY (06/29/2023 10:04 AM CDT) 06/29/2023 10:0 4 AM CDT Narrative Transcriptions Constance Tellez MD - 06/29/2023 10:43 AM CDT Patient Name: Ez Guillory Procedure Date: 06/29/2023 Gender: Male Date of : 1970 Admit Type: Ambulatory Procedure: Colonoscopy Proceduralist: Constance Arauz MD Referring MD: Constance Arauz MD Indications/Pre-Op Diagnosis: Screening for colorectal malignantneoplasm Medications: Monitored Anesthesia Care Procedure Description: The procedure, indications, potential complications, (bleeding, perforation, infection, adverse medication reaction, missed lesionsor polyps) and alternatives available were explained to the patient, who appeared to understand and indicated this. Opportunity for questionswas provided and informed consent obtained. The endoscope [id number] was passed through the anus andadvanced to the cecum, identified by appendiceal orifice and ileocecal valve.The colonoscopy was performed without difficulty. The patient toleratedthe procedure well. The quality of the bowel preparation was evaluatedusing the BBPS ([place] Bowel Preparation Scale) with scores of: Right Colon= 3, Transverse Colon = 3 and Left Colon = 3 (entire mucosa seen wellwith no residual staining, small fragments of stool or opaque liquid). The total BBPS score equals 9. Complications: No immediate complications. Estimated Blood Loss & Specimen: Estimated blood loss was minimal. Specimen collected: Yes and sent to Laboratory Findings: The perianal and digital rectal examinations were normal. A 4 mm polyp was found in the descending colon. The polyp wassessile. The polyp was removed with a cold snare. Resection and retrieval were complete. A 4 mm polyp was found in the sigmoid colon. The polyp was sessile.The polyp was removed with a cold snare. Resection and retrieval were complete. Multiple diverticula were found in the sigmoid colon. The exam was otherwise without abnormality on direct and retroflexion views. Impressions/Post-Op Diagnosis: - One 4 mm polyp in the descending colon, removed with a cold snare. Resected and retrieved. - One 4 mm polyp in the sigmoid colon, removed with a cold snare. Resected and retrieved. - Diverticulosis in the sigmoid colon. - The examination was otherwise normal on direct and retroflexionviews. Recommendation: - Await pathology results. - Dr. Arauz's office will call you with results and follow up instructions - High fiber diet. Moderate Sedation: see anesthesia report Constance Arauz MD 06/29/2023 10:43:00 AM This report has been signed electronically. Note Initiated On: 06/29/2023 10:04 AM Constance Garcia MD PROCEDURE O RD from Last 3 Months or Most Recently Relevant to Health Maintenance Advance Directives * Full Code (Latest Code Status on File) Date Activated Date Inactivated Comments 06/29/2023 9:09 AM 06/29/2023 1:41 PM Question Answer Comments Code Status Discussion: Not Discussed Care Teams Sheet Rock Installer Relationship Specialty Start Date End Date Abebe Patrick PA [address] [place] [phone] PCP - General Physician Delivery Manager 06/05/23
--- OUTSIDE RECORDS SUMMARY | 2024-06-16 16:45 | XMS_ITS | Encounter Summary ---
Author Organization [facility] Address [address] [place] [address] Care Team Providers Care Gallery Host Name Role Phone Abebe Patrick P.A.-C. Primary Care Provider Reason for Visit * Reason Onset Date Comments Knee Pain 04/18/2024 Encounter Details Date Type Department Care Team (Late st Contact Info) Description 04/18/2024 Nurse Triage Department of Family Medicine, [facility], in [place], [place] [address] [place] [phone] Wendy Marie RJosue [address] [place] [phone] Knee Pain Social History Tobacco Use Types Packs/Day Years Used Date Smoking Tobacco: Never Smokeless Tobacco: Never Alcohol Use Standard Drinks/Week Comments Yes 6 (1 standard drink = 0.6 oz pur e alcohol) [facility] Utilities Answer Date Recorded In the past 12 months has [facility] [employer], gas, oil, or water [employer] threatened to shut off services in your [...] 04/08/2022 How often do you attend chur or muslim services? Never 04/08/2022 Do you belong to any clubs o r organizations such as pentecostal groups, unions, fraternal or athletic groups, or [...] Answer Date Recorded PHQ-2 Score 0 01/08/2024 [facility] of Occupat ional Health - Occupational Stress [...] your living situation today? I have a [facility] place to live 01/08/2024 Education Answer Date Recorded What is the highest level of school you have completed or the highest degree you have received? 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 - 04/18/2024 8:01 AM CDT Chief Complaint / Reason for Call Patient is a 54 y.o. male calling regarding Knee Pain. Assessment Concern: left knee pain Present for: acute on chronic Home cares tried: Tylenol/Ibuprofen Calling to request: appointment The recommended disposition is See a health care provider within 3 days. Ez calls with concerns about his left knee. He has been having problems with this knee for sometime. Now he states at rest his pain is a 4/10. If he puts any pressure on his knee the pain is a 7/10. He has been alternating Tylenol and Ibuprofen with little relief. He would like an appointment to be seen and evaluated. Plan: Ez was transferred to an food safety field specialist to schedule a clinic appointment. Care Advice Patient/Caregiver understands and will follow care advice?: Yes, able to teach back Knee [id number] Nurse Wendy Angel Apr 18, 2024 08:02 AM Care Advice REST YOUR KNEE FOR THE NEXT COUPLE DAYS: * Avoid activities that worsen your pain. * Reduce activities that put a lot of strain on the knee joint (e.g., deep knee bends, stair climbing, running). LOCAL HEAT: * Apply a warm washcloth or heating pad for 10 minutes three times daily. * This will help to increase circulation and improve healing. PAIN MEDICINES: * For pain relief, you can take either acetaminophen, ibuprofen, or naproxen. * They are iyyz-rdq-nizsnco (OTC) pain drugs. You can buy them at the drugstore. * ACETAMINOPHEN - REGULAR STRENGTH TYLENOL: Take 650 mg (two 325 mg pills) by mouth every 4 to 6 hours as needed. Each Regular Strength Tylenol pill has 325 mg of acetaminophen. The most you should take is 10 pills a day (3,250 mg total). Note: In [place], the maximum is 12 pills a day (3,900 mg total). * ACETAMINOPHEN - EXTRA STRENGTH TYLENOL: Take 1,000 mg (two 500 mg pills) every 6 to 8 hours as needed. Each Extra Strength Tylenol pill has 500 mg of acetaminophen. The most you should take is 6 pills a day (3,000 mg total). Note: In [place], the maximum is 8 pills a day (4,000 mg total). * IBUPROFEN (E.G., MOTRIN, ADVIL): Take 400 mg (two 200 mg pills) by mouth every 6 hours. The most you should take is 6 pills a day (1,200 mg total). * NAPROXEN (E.G., ALEVE): Take 220 mg (one 220 mg pill) by mouth every 8 to 12 hours as needed. Youmay take 440 mg (two 220 mg pills) for your first dose. The most you should take is 3 pills a day (660 mg total). Note: In [place], the maximum is 2 pills a day (one every 12 hours; 440 mg total). * Use the lowest amount of medicine that makes your pain better. CALL BACK IF: * Fever or severe knee pain occurs * Redness or severe swelling occurs * You become worse Reason for Disposition [1] MODERATE pain (e.g., interferes with normal activities, limping) AND [2] present > 3 days Protocols used: Knee Aopm-KQUXA-CE documented in this encounter Plan of Treatment Not on file documented as of this encounter Visit Diagnoses Not on filedocumented in this encounter Additional Health Concerns Assessment Noted Time PHQ-9 Depression Total Score: 5 10/12/19 16 4:32 PM COMMERCIAL INTERN documented as of this encounter Care Teams Gallery Host Relationship Specialty Start Date End Date Abebe Patrick P.A.-C. [address] [place] [phone] PCP - General Family Medicine 12/25/23 documented as of this encounter
[2024-06-16] MEDS: predniSONE 20 MG TABLET 80 MG PO (17:07)
[2024-06-16] MEDS: VALACYCLOVIR HCL 500 MG TABLET 1000 MG PO (17:11)
[2024-06-20 15:16] LABS: Lyme Mod 2Tier Test Interp Positive (Negative)
== END 2024-06-16 17:15 | disposition home or self-care (01) ==
PROVIDERS: Emergency Provider Family Medicine; PCP Physician Assistant
DX: G51.0 Bell's palsy (principal)
CPT/HCPCS: 36415; 86618; 99283; 99284; A9270; J7512